=== PATIENT | female | born 1965 | race Hispanic/Latino ===

== ENCOUNTER 2017-11-29 17:56 | Emergency (ER) | payer BC, OTHER, SELFPAY ==
--- OUTSIDE RECORDS SUMMARY | 2017-11-29 17:59 | XMS REPORT ---
:1965 [facility] Address [address] [place] [address] Care Team Providers Name Role Phone Unavailable Unavailable Unavailable Problems This patient has no known problems. Allergies, Adverse Reactions, Alerts This patient has no known allergies or adverse reactions. Medications This patient has no known medications. Results Test Description Test Time Test Comments Text Results Atomic Results Result Comments MRI ANKLE JNT RT WO CLINICAL INDICATION: M76.821 Posterior tibial tendinitis, right leg. MODALITY: Avanto 1.5 Morenita 18 channel MRITECHNIQUE: Multiplanar multisequence MRI of the right ankle was performed.IMPRESSION:1. Evidence of prior repair of the tibialis posterior tendon, with evidence of postoperative tendon thickening/tendinosis. Recurrent low to moderate grade type 1 partial tear is evident involving the retro malleolar aspect of the tendon and low grade recurrent type 1 tear is evident involving distal aspect of the tendon near its navicular attachment. Soft tissue edema is present adjacent to the tibialis posterior tendon sheath, consistent with tenosynovitis.2. Small vertical split involving the proximal inframalleolar peroneus brevis tendon, with associated tenosynovitis.3. Otherwise unremarkable MRI of the right ankle.FINDINGS:COMPARISON: noneEXTENSOR TENDONS: Tibialis anterior, extensor hallucis longus and extensor digitorum longus tendons are intact.MEDIAL TENDONS: Tibialis posterior tendinosis is evident. Micro metallic artifacts are present about the medial aspect of the ankle, presumably status post tibialis posterior tendon repair. Low to moderate grade type 1 partial tear is evident involving the retro malleolar aspect of the tibialis posterior tendon. Low grade type 1 partial tear involves the distal aspect of the tendon near its navicular attachment. Mild edema signal is seen adjacent to the tibialis posterior tendon sheath, consistent with tenosynovitis. The flexor hallucis longus and flexor digitorum longus tendons are intact.LATERAL TENDONS: Small vertical split involving the proximal inframalleolar aspect of the peroneus brevis tendon is evident. Mildly prominent fluid is present within the peroneal tendon sheath and there is mild adjacent soft tissue edema. The peroneus longus tendon remains intact.ACHILLES TENDON: Achilles tendon is intact.LIGAMENTS: The anterior and posterior talofibular ligaments are intact. Calcaneofibular ligament is intact. Anterior and posterior inferior tibiofibular ligaments are intact. Deltoid ligament is intact.SINUS TARSI: Sinus tarsi signal is normal. Cervical and talocalcaneal interosseous ligaments are intact.OSSEOUS STRUCTURES: No fractures or destructive osseous lesions are detected. Marrow signal is unremarkable. High-grade talar dome chondral lesion is not seen.MISCELLANEOUS FINDINGS: None.
--- NOTE | 2017-11-29 18:48 | RAD REPORT ---
EXAM DESCRIPTION: RAD - Ankle Left 3 View -11/29/2017 6:33 pm CLINICAL HISTORY: Left ankle pain status post injury FINDINGS: No acute fracture or dislocation is seen. A radiopaque foreign body is not seen
[2017-11-29] MEDS ORDERED: IBUPROFEN 400 MG TAB ONE (20:16)
--- NOTE | 2017-11-29 20:18 | ER ---
Nurse's Notes [facility] Name: Candida Davison Age: 52 yrs Sex: Female : 1965 Arrival Date: 11/29/2017 Time: 18:03 Bed 17 Private MD: Diagnosis: Laceration without foreign body of ankle-Left Presentation: 11/29 18:08 Presenting complaint: EMS states: glass cake stand fell and a piece of the glass cut iw her on left posterior ankle, dressing applied by EMS, bleeding controlled. Transition of care: patient was not received from another setting of care. Complicating Factors: There are no complicating factors for this patient. Onset of symptoms was November 29, 2017. Risk Assessment: Do you want to hurt yourself or someone else? Patient reports no desire to harm self or others. Initial Sepsis Screen: Does the patient meet any 2 criteria? No. Patient's initial sepsis screen is negative. Does the patient have a suspected source of infection? No. Patient's initial sepsis screen is negative. Care prior to arrival: Bleeding of injury controlled. Injury dressed. 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 - Social history:: Smoking status: . - Ebola Screening: : Patient negative for fever greater than or equal to 101.5 degrees Fahrenheit, and additional compatible Ebola Virus Disease symptoms Patient denies exposure to infectious person Patient denies travel to an Ebola-affected area in the 21 days before illness onset No symptoms or risks identified at this time. Screenin:35 Abuse screen: Denies threats or abuse. Denies injuries from another. Nutritional iw screening: No deficits noted. Tuberculosis screening: No symptoms or risk factors identified. Fall Risk None identified. Assessment: 18:33 General: Appears in no apparent distress. Behavior is calm, cooperative. Pain: iw Complains of pain in left Achilles Pain currently is 2 out of 10 on a pain scale. Neuro: Level of Consciousness is awake, alert, obeys commands, Oriented to person, place, time, situation, Moves all extremities. Full function. Cardiovascular: Patient's skin is warm and dry. Respiratory: Respiratory effort is even, unlabored, Respiratory pattern is regular, symmetrical. GI: No signs and/or symptoms were reported involving the gastrointestinal system. Derm: Skin is pink, warm \T\ dry. normal. Musculoskeletal: Range of motion: intact in all extremities. Injury Description: Laceration sustained to left Achilles is jagged, 0.5 to 2.5 cm long. 19:14 Reassessment: Patient appears in no apparent distress at this time. No changes from j previously documented assessment. Patient and/or family updated on plan of care and expected duration. Pain level reassessed. Patient is alert, oriented x 3, equal unlabored respirations, skin warm/dry/pink. 20:49 Reassessment: Patient appears in no apparent distress at this time. Patient and/or jd3 family updated on plan of care and expected duration. Pain level reassessed. Patient is alert, oriented x 3, equal unlabored respirations, skin warm/dry/pink. pt reported understanding of discharge instructions, pt assisted to front of ER with wheelchair. Vital Signs: 18:10 BP 160 / 106; Pulse 85; Resp 16; Temp 98.3(TE); Pulse Ox 100% on R/A; Pain 2/10; iw 19:25 BP 167 / 99; Pulse 72; Resp 17 S; Pulse Ox 98% on R/A; Pain 2/10; jd3 20:52 Pulse 75; Resp 17 S; Pulse Ox 100% on R/A; Pain 0/10; jd3 ED Course: 18:03 Patient arrived in ED. iw 18:04 Rhett Gates PA is PHCP. cp 18:04 Rhett Toure MD is Attending Physician. cp 18:09 Triage completed. iw 18:10 Arm band placed on. iw 18:29 Tristan Shepard LVN is Primary Nurse. em 18:30 X-ray completed. Portable x-ray completed in exam room. Patient tolerated procedure la2 well. 18:30 XRAY Ankle LEFT 3 view In Process Unspecified. EDMS 18:35 Patient did not have IV access during this emergency room visit. iw 19:14 Patient has correct armband on for positive identification. Bed in low position. Call jd3 light in reach. Side rails up X 1. Adult w/ patient. 19:24 Primary Nurse role handed off by Tristan Shepard LVN rg2 19:25 Rashaun Carmona, RN is Primary Nurse. jd3 20:48 Assist provider with laceration repair on left Achilles that was between 2.6 to 7.5 cm jd3 using sutures. Set up tray. Performed by Rhett Gates PA Dressed with 4X4s, Kerlix, Patient tolerated well. Administered Medications: 20:26 Drug: Ibuprofen 800 mg Route: PO; jd3 20:53 Follow up: Response: Medication administered at discharge. jd3 Outcome: 20:18 Discharge ordered by MD. cp 20:49 Discharged to home via wheelchair, with family. jd3 20:49 Condition: stable 20:49 Discharge instructions given to patient, family, Instructed on discharge instructions, follow up and referral plans. medication usage, Demonstrated understanding of instructions, follow-up care, medications, Prescriptions given X 1. 20:53 Patient left the ED. jd3 Signatures: Dispatcher [employer] ED Tony Doeburn rg2 Tristan Shepard LVN LVN em Nuria Friend RN RN Rhett Peterson PA PA cp Ardoin, Leslie la2 Rashaun Carmona, RN RN jd3 Corrections: (The following items were deleted from the chart) 18:12 18:10 Pain 2/10; iw kym
--- NOTE | 2017-11-29 20:18 | EDPHYS ---
Physician Documentation [facility] Name: Candida Davison Age: 52 yrs Sex: Female : 1965 Arrival Date: 11/29/2017 Time: 18:03 Bed 17 Private MD: ED Physician Rhett Toure HPI: 11/29 18:15 This 52 yrs old Female presents to ER via EMS with complaints of Laceration. cp 18:15 The patient presents with an injury, a laceration, 3 cm(s), pain, that is acute. The cp complaints affect the left lateral ankle. 18:15 Context: resulted from a direct blow, heavy glass object dropped onto ankle. Onset: The cp symptoms/episode began/occurred just prior to arrival. Treatment prior to arrival includes: pressure dressing applied by EMS. 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 - Social history:: Smoking status: . - Ebola Screening: : Patient negative for fever greater than or equal to 101.5 degrees Fahrenheit, and additional compatible Ebola Virus Disease symptoms Patient denies exposure to infectious person Patient denies travel to an Ebola-affected area in the 21 days before illness onset No symptoms or risks identified at this time. ROS: 18:20 Eyes: Negative for injury, pain, redness, and discharge. cp 18:20 Constitutional: Negative for body aches, chills, fever, poor PO intake. 18:20 ENT: Negative for drainage from ear(s), ear pain, sore throat, difficulty swallowing, cp difficulty handling secretions. 18:20 Cardiovascular: Negative for chest pain, edema, palpitations. 18:20 Respiratory: Negative for cough, shortness of breath, wheezing. 18:20 MS/extremity: Positive for pain, tenderness, of the lateral aspect left ankle, Negative for decreased range of motion, paresthesias. 18:20 Skin: Positive for laceration(s), of the lateral aspect left ankle. 18:20 All other systems are negative. Exam: 18:28 Constitutional: The patient appears in no acute distress, alert, awake, non-toxic, well cp developed, well nourished, uncomfortable. 18:28 Head/Face: Normocephalic, atraumatic. cp 18:30 Eyes: Periorbital structures: appear normal, Conjunctiva: normal, no exudate, no cp injection, Lids and lashes: appear normal, bilaterally. 18:30 ENT: External ear(s): are unremarkable, Nose: is normal, Mouth: is normal, Posterior cp pharynx: is normal, airway is patent. 18:30 Chest/axilla: Inspection: normal. 18:30 Cardiovascular: Rate: normal, Rhythm: regular, Pulses: Pulses are 2+ in left dorsalis pedis artery. 18:30 Respiratory: the patient does not display signs of respiratory distress, Respirations: normal, no use of accessory muscles, no retractions, no splinting, no tachypnea. 18:30 Abdomen/GI: Exam negative for discomfort, distension, guarding, Inspection: abdomen appears normal. 18:30 Back: pain, is absent, ROM is normal. 18:30 Musculoskeletal/extremity: ROM: full active range of motion, in the left ankle, Sensation intact. Tendon exam: specific tendon testing normal through active and passive range of motion 18:30 Skin: injury, laceration(s), the wound is approximately 3 cm(s), of the lateral aspect posterior left ankle, that can be described as clean, no foreign body, linear, with mild bleeding. Vital Signs: 18:10 BP 160 / 106; Pulse 85; Resp 16; Temp 98.3(TE); Pulse Ox 100% on R/A; Pain 2/10; iw 19:25 BP 167 / 99; Pulse 72; Resp 17 S; Pulse Ox 98% on R/A; Pain 2/10; jd3 20:52 Pulse 75; Resp 17 S; Pulse Ox 100% on R/A; Pain 0/10; jd3 Laceration: 21:00 Wound Repair of 3cm ( 1.2in ) subcutaneous laceration to posterior lateral aspect left cp ankle. Linear shaped.. Distal neuro/vascular/tendon intact. Anesthesia: Wound infiltrated with 4 mls of 1% lidocaine w/ Epi. Wound prep: Wound irrigation by nurse, Wound explored moderately. Skin closed with 4 4-0 Prolene using simple sutures and sterile technique. Dressed with Bacitracin, non-adherent dressing. Patient tolerated well. MDM: 18:06 Patient medically screened. cp 19:00 Differential diagnosis: open fracture, closed fracture, simple laceration, tendon cp rupture. 20:15 Data reviewed: vital signs, nurses notes, radiologic studies, plain films. cp 20:15 Test interpretation: by ED physician or midlevel provider: plain radiologic studies. cp Counseling: I had a detailed discussion with the patient and/or guardian regarding: the historical points, exam findings, and any diagnostic results supporting the discharge/admit diagnosis, radiology results, to return to the emergency department if symptoms worsen or persist or if there are any questions or concerns that arise at home. Response to treatment: the patient's symptoms have markedly improved after treatment, and as a result, I will discharge patient. ED course: VSS. Ankle splinted with air cast and crutches given. Will discharge to home for continued monitoring. 11/29 18:05 Order name: XRAY Ankle LEFT 3 view; Complete Time: 18:54 cp 11/29 18:54 Interpretation: Report reviewed. cp 11/29 18:15 Order name: Wound Care; Complete Time: 19:10 cp 11/29 18:54 Order name: Wound Care; Complete Time: 19:10 cp 11/29 19:08 Order name: Dressing - Wound; Complete Time: 20:08 cp 11/29 19:08 Order name: Gloves, Sterile; Complete Time: 19:14 cp 11/29 19:08 Order name: Setup Suture Tray; Complete Time: 19:14 cp 11/29 20:07 Order name: Wound dressing; Complete Time: 20:26 cp 11/29 20:07 Order name: Ankle Splint: Aircast; Complete Time: 20:26 cp 11/29 20:07 Order name: Crutches; Complete Time: 20:26 cp Administered Medications: 20:26 Drug: Ibuprofen 800 mg Route: PO; jd3 20:53 Follow up: Response: Medication administered at discharge. jd3 Disposition: 11/30 09:08 Co-signature as Attending Physician, Rhett Toure MD I agree with the assessment and [place] plan of care. Disposition: 11/29/17 20:18 Discharged to Home. Impression: Laceration without foreign body of ankle - Left. - Condition is Stable. - Discharge Instructions: Laceration Care, Adult. - Prescriptions for Naprosyn 500 mg Oral Tablet - take 1 tablet by ORAL route 2 times per day take with food; 20 tablet. - Medication Reconciliation Form, Thank You Letter, Antibiotic Education, Prescription Opioid Use form. - Follow up: Private Physician; When: 7 - 10 days; Reason: Staple/Suture removal. - Problem is new. - Symptoms have improved. Signatures: Dispatcher [employer] EDMS Rhett Toure MD MD cha Williams, Irene, RN RN iw Rhett Gates PA PA cp Davies, Jonathon, RN RN jd3 Corrections: (The following items were deleted from the chart) 11/29 20:53 20:18 11/29/2017 20:18 Discharged to Home. Impression: Laceration without foreign body jd3 of ankle - Left. Condition is Stable. Forms are Medication Reconciliation Form, Thank You Letter, Antibiotic Education, Prescription Opioid Use. Follow up: Private Physician; When: 7 - 10 days; Reason: Staple/Suture removal. Problem is new. Symptoms have improved. cp
== END 2017-11-29 20:53 | disposition home or self-care (01) ==
LOC: ER 17:56
PROC: 0JQR0ZZ Repair Left Foot Subcutaneous Tissue and Fascia, Open Approach (ICD-10-PCS; principal; 2017-11-29)
DX: S91.012A Laceration without foreign body, left ankle, initial encounter (principal); W25.XXXA Contact with sharp glass, initial encounter; Y93.9 Activity, unspecified; Y92.9 Unspecified place or not applicable; I10 Essential (primary) hypertension; Z88.5 Allergy status to narcotic agent; Z88.0 Allergy status to penicillin
CPT/HCPCS: 99284

== ENCOUNTER 2018-03-18 13:41 | Emergency (ER) | payer BC ==
--- OUTSIDE RECORDS SUMMARY | 2018-03-18 13:44 | XMS REPORT ---
:1965 [facility] Address [address] [place] [address] Care Team Providers Name Role Phone Unavailable [...]
--- OUTSIDE RECORDS SUMMARY | 2018-03-18 13:44 | XMS REPORT ---
:1965 Author Organization [employer] Care Team Providers Name Role Phone Jose Luis Rossen Provider Role Unavailable Allergies, Adverse Reactions, Alerts Substance Reaction Event Type codeine Info Not Available Drug Allergy PCN Info Not Available Drug Allergy MORPHINE Info Not Available Drug Allergy Problems Problem Type Condition Code Onset Dates Condition Status Assessment Other chronic pain G89.29 Active Assessment Gastroesophageal reflux disease, K21.9 Active esophagitis presence not specified Assessment Pain in right ankle and joints of M25.571 Active right foot Assessment Low back pain M54.5 Active Problem Other chronic pain G89.29 Active Problem Pain in right ankle and joints of M25.571 Active right foot Problem Low back pain M54.5 Active Assessment Hypertension, unspecified type I10 Active Problem Gastroesophageal reflux disease, K21.9 Active esophagitis presence not specified Problem Hypertension, unspecified type I10 Active Medications Medication Code Code Instructions Start End Status Dosage System Date Date Gabapentin [facility] 74814511721 300 MG Orally Jan 21, Active 1-2 Once a day 2017 capsules in evening Metoprolol [facility] 20985850147 50 MG Orally Active 1 tablet Tartrate Twice a day with food Lisinopril [facility] 17160543806 20 MG Orally Active 1 tablet Once daily Results No Known Results Summary Purpose [employer] Submission
[2018-03-18] MEDS ORDERED: FENTANYL CITR 100 MCG/2 ML ONE ×2 (14:19→16:38)
[2018-03-18] MEDS ORDERED: NA CHLORIDE 0.9% 1,000 ML ONE ×2 (14:20→15:53)
[2018-03-18] MEDS ORDERED: ONDANSETRON 4 MG/2 ML VIAL ONE ×2 (14:20→18:34)
[2018-03-18 14:46] LABS: Absolute Lymphocytes (CBC) 2.2 K/uL (0.7-4.9); Absolute Monocytes 0.4 K/uL (0.1-1.3); Absolute Neutrophil 5.6 K/uL (1.8-8.0); Basophils % 0.2 % (0-1.3); Eosinophils % 0.4 % (0-4.4); Hematocrit 43.5 % (36.0-45.0); Lymphocytes % 26.7 % (15.3-44.8); MCH 30.6 pg (27.0-35.0); MCV 90.3 fL (80-100); MPV 11.3 fL (7.6-11.3); Monocytes % 5.3 % (3.3-12.3); RBC Red Blood Cell Count 4.82 M/uL (3.86-4.86)
--- NOTE | 2018-03-18 14:52 | RAD REPORT ---
EXAM DESCRIPTION: CT - Stone Protocol - 03/18/2018 2:39 pm CLINICAL HISTORY: Left-sided abdominal pain, flank pain COMPARISON: None. TECHNIQUE: Axial 5 mm thick images were obtained without oral or IV contrast. The [id number] span s the entirety of the system including uppermost abdomen and lung bases. All CT scans are performed using dose optimization technique as appropriate and may include automated exposure control or mA/KV adjustment according to patient size. FINDINGS: Mild dilatation of the left ureter is present secondary to a 2 millimeter stone at the UVJ . No other obstructing or nonobstructing calculi in either kidney. Patient has mild to moderate dilat ation of the right renal pelvis without ureter dilatation. There is more pronounced dilatation in the left renal pelvis. 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 Patient could have additio nal left-sided parapelvic cysts. Full assessment is limited in the absence of contrast. No perinephri c stranding. Left kidney does not appear edematous relative to the right. No bladder abnormality other than the left UVJ calculus. Uterus and ovaries show no suspicious findin gs. No suspicious renal masses. Isodense masses and pyelonephritis are not excluded on a stone protoc ol CT scan. Imaged portions of the liver, spleen and pancreas show no suspicious findings on non-contrast imaging . Small cysts are present in the midline left lobe and dome of the right lobe. No gallbladder or bili april tree abnormality. Gallstones can be occult on CT imaging. No significant adrenal finding. No suspicious bowel findings. Appendix is normal. No hernia, mass or bulky lymphadenopathy noted. No free air, free fluid or inflammatory stranding. No significant bony abnormality. IMPRESSION: Mild dilatation of the left ureter secondary to an obstructing 2 mm calculus left UVJ. 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 Find ings are more pronounced on the left. This could be in part due to the obstructing calculus, greater degree of congenital UPJ obstruction, presence of parapelvic cysts or a combination. Absence of contr ast limits assessment. Isodense masses and pyelonephritis are not excluded on stone protocol technique.
[2018-03-18 15:05] LABS: Potassium 3.9 mmol/L (3.5-5.1)
[2018-03-18] MEDS ORDERED: TAMSULOSIN 0.4 MG SR CAP ONE (15:18)
[2018-03-18] MEDS ORDERED: KETOROLAC 30 MG/ML INJ ONE (15:18)
[2018-03-18] MEDS ORDERED: MAGNESIUM SULFATE 1 gm IVPB 1 GM/100 ML BAG IV ONE (15:18)
[2018-03-18] MEDS ORDERED: MEPERIDINE HCL 50 MG/ML AMP ONE (15:40)
[2018-03-18] MEDS ORDERED: DIPHENHYDRAMINE 25 MG TAB/CAP ONE (15:46)
[2018-03-18] MEDS ORDERED: METHYLPREDNISOLONE 125 MG INJ ONE (15:46)
[2018-03-18] MEDS ORDERED: FAMOTIDINE 20 MG/2 ML VIAL IV ONE ×2 (15:47→15:52)
[2018-03-18] MEDS ORDERED: EPINEPHRINE/PF 1 MG/ML AMP ONE (15:47)
[2018-03-18] MEDS ORDERED: ALBUTEROL 2.5 MG/3 ML NEB SOL ONE (15:47)
[2018-03-18 17:26] LABS: Urine Blood TRACE (NEG); Urine Glucose NEGATIVE (NEG); Urine Protein NEGATIVE (NEG); Urine pH 5.5 (5.0-7.0)
[2018-03-18] MEDS ORDERED: NITROFURAN MACRO 100 MG CAP PO ONE (17:34)
[2018-03-18 17:38] LABS: Urine Amorphous Sediment 2+ /HPF (NONE SEEN); Urine Bacteria >50 /HPF (<20)
[2018-03-18 17:39] LABS: Urine Culture Reflex Order REFLEXED
--- NOTE | 2018-03-18 19:19 | EDPHYS ---
Physician Documentation [facility] Name: Candida Davison Age: 52 yrs Sex: Female : 1965 Arrival Date: 03/18/2018 Time: 13:44 Bed 30 Private MD: Cristina Ross ED Physician Henrry Foley HPI: 03/18 14:52 This 52 yrs old Female presents to ER via Wheelchair with complaints of Low kb Back Pain. 14:52 The patient complains of pain in the left flank. The pain radiates to the left upper kb quadrant. Onset: The symptoms/episode began/occurred 1 hour(s) ago. Modifying factors: The symptoms are alleviated by nothing. the symptoms are aggravated by palpation/percussion. Associated signs and symptoms: The patient has no apparent associated signs or symptoms. Severity of pain: At its worst the pain was moderate in the emergency department the pain is unchanged. The patient has not experienced similar symptoms in the past. The patient has not recently seen a physician. NURSE EMERGENCY: 19:33 LMP N/A - Post-menopause rv Historical: - Allergies: 14:06 Codeine; iw 14:06 Morphine; iw 14:06 PENICILLINS; iw 15:52 Demerol; rv - PMHx: 14:08 Hypertension; iw - PSHx: 14:08 L shoulder repair; iw - Immunization history:: Adult Immunizations up to date. - Ebola Screening: : Patient negative for fever greater than or equal to 101.5 degrees Fahrenheit, and additional compatible Ebola Virus Disease symptoms Patient denies exposure to infectious person Patient denies travel to an Ebola-affected area in the 21 days before illness onset No symptoms or risks identified at this time. - Social history:: Smoking status: unknown. ROS: 14:51 Constitutional: Negative for fever, chills, and weight loss, Cardiovascular: Negative kb for chest pain, palpitations, and edema, Respiratory: Negative for shortness of breath, cough, wheezing, and pleuritic chest pain, : Negative for injury, bleeding, discharge, and swelling, MS/Extremity: Negative for injury and deformity, Skin: Negative for injury, rash, and discoloration, Neuro: Negative for headache, weakness, numbness, tingling, and seizure. 14:51 Abdomen/GI: Positive for abdominal pain. 14:51 Back: Positive for flank pain, on the left. Exam: 14:51 Constitutional: This is a well developed, well nourished patient who is awake, alert, kb and in no acute distress. Head/Face: Normocephalic, atraumatic. Chest/axilla: Normal chest wall appearance and motion. Nontender with no deformity. No lesions are appreciated. Cardiovascular: Regular rate and rhythm with a normal S1 and S2. No gallops, murmurs, or rubs. Normal PMI, no JVD. No pulse deficits. Respiratory: Lungs have equal breath sounds bilaterally, clear to auscultation and percussion. No rales, rhonchi or wheezes noted. No increased work of breathing, no retractions or nasal flaring. Abdomen/GI: Soft, non-tender, with normal bowel sounds. No distension or tympany. No guarding or rebound. No evidence of tenderness throughout. Skin: Warm, dry with normal turgor. Normal color with no rashes, no lesions, and no evidence of cellulitis. MS/ Extremity: Pulses equal, no cyanosis. Neurovascular intact. Full, normal range of motion. Neuro: Awake and alert, GCS 15, oriented to person, place, time, and situation. Cranial nerves II-XII grossly intact. Motor strength 5/5 in all extremities. Sensory grossly intact. Cerebellar exam normal. Normal gait. 14:51 Back: CVA tenderness, that is moderate, is noted on the left. Vital Signs: 14:07 BP 181 / 89; Pulse 98; Resp 16; Temp 98.2; Pulse Ox 98% on R/A; Pain 10/10; iw 15:23 BP 153 / 117; Pulse 94; Pulse Ox 98% on R/A; rv 16:08 BP 155 / 93; Pulse 92; Resp 18; Pulse Ox 100% ; rv 17:04 BP 148 / 67; Pulse 102; Pulse Ox 99% on R/A; rv 19:18 BP 144 / 81; rv 19:34 BP 144 / 81; Pulse 95; Pulse Ox 100% on R/A; rv MDM: 13:56 Patient medically screened. kb 14:51 Data reviewed: vital signs, nurses notes. Data interpreted: Pulse oximetry: on room air kb is 98 %. Interpretation: normal. 15:06 Counseling: I had a detailed discussion with the patient and/or guardian regarding: the kb historical points, exam findings, and any diagnostic results supporting the discharge/admit diagnosis, lab results, radiology results, the need for outpatient follow up, a family practitioner, a urologist, to return to the emergency department if symptoms worsen or persist or if there are any questions or concerns that arise at home. 16:09 ED course: Pt had allergic reaction to demerol. became short of breath, wheezing noted kb on auscultation, oxygen saturation went down to 87% on room air. Pt has improved after treatment. Lungs clear bilaterally, oxygen 96%. Will continue to monitor. Demerol added to allergy list. . 03/18 13:59 Order name: Basic Metabolic Panel; Complete Time: 15:06 kb 03/18 13:59 Order name: CBC with Diff; Complete Time: 14:53 kb 03/18 13:59 Order name: CT Stone Protocol; Complete Time: 14:53 kb 03/18 17:12 Order name: Urine Dipstick--Ancillary (enter results); Complete Time: 17:28 eb 03/18 17:12 Order name: Urine Microscopic Only; Complete Time: 17:40 eb 03/18 17:40 Order name: Urine Culture EDTX 03/18 13:59 Order name: IV Saline Lock; Complete Time: 14:20 kb 03/18 13:59 Order name: Labs collected and sent; Complete Time: 14:20 kb 03/18 13:59 Order name: Urine Dipstick-Ancillary (obtain specimen); Complete Time: 17:22 kb Administered Medications: 14:21 Drug: fentaNYL (PF) 50 mcg Route: IVP; Site: right antecubital; iw 15:20 Follow up: Response: No adverse reaction rv 14:21 Drug: Zofran 4 mg Route: IVP; Site: right antecubital; iw 15:20 Follow up: Response: No adverse reaction rv 14:21 Drug: NS 0.9% 1000 ml Route: IV; Rate: 1000 ml; Site: right antecubital; iw 14:38 Drug: fentaNYL (PF) 50 mcg Route: IVP; Site: right antecubital; iw 15:20 Follow up: Response: No adverse reaction rv 15:19 Drug: TORadol 30 mg Route: IVP; Site: right antecubital; rv 16:52 Follow up: Response: No adverse reaction rv 15:19 Drug: Flomax 0.4 mg Route: PO; rv 16:52 Follow up: Response: No adverse reaction rv 15:19 Drug: Magnesium Sulfate 1 grams Route: IVPB; Infused Over: 30 mins; Site: right rv antecubital; 15:40 Drug: Demerol 50 mg Route: IVP; Site: right antecubital; rv 15:50 Follow up: Response: Adverse reaction, Physician notified rv 15:55 Drug: EPINEPHrine 1mg/mL 1:1,000 0.5 mg Route: IM; Site: left gluteus; rv 16:52 Follow up: Response: No adverse reaction rv 16:30 Drug: fentaNYL (PF) 50 mcg Route: IVP; Site: right antecubital; rv 19:19 Follow up: Response: No adverse reaction rv 18:04 Drug: fentaNYL (PF) 50 mcg Route: IVP; Site: right antecubital; rv 19:19 Follow up: Response: No adverse reaction rv 18:30 Drug: Zofran 4 mg Route: IVP; Site: right antecubital; rv 18:55 Follow up: Response: No adverse reaction rv 19:00 Drug: Macrobid 100 mg Route: PO; rv 19:20 Follow up: Response: No adverse reaction rv Disposition: 03/19 07:35 Co-signature as Attending Physician, Henrry Foley MD. rn Disposition: 03/18/18 19:18 Discharged to Home. Impression: Calculus of kidney and ureter. - Condition is Stable. - Discharge Instructions: Kidney Stones, [id number], Dietary Guidelines to Help Prevent Kidney Stones. - Prescriptions for Zofran 4 mg Oral Tablet - take 1 tablet by ORAL route every 6 hours As needed; 20 tablet. Flomax 0.4 mg Oral Capsule, Sust. Release 24 hr - take 1 capsule by ORAL route once daily 1/2 hour following the same meal each day; 10 capsule. Diclofenac Sodium 75 mg Oral Tablet, Delayed Release (E.C.) - take 1 tablet by ORAL route 2 times per day As needed; 30 tablet. Macrobid 100 mg Oral Capsule - take 1 capsule by ORAL route every 12 hours for 7 days; 14 capsule. - Medication Reconciliation Form, Thank You Letter, Antibiotic Education, Prescription Opioid Use form. - Follow up: Emergency Department; When: As needed; Reason: Worsening of condition. Follow up: Cristina Ross; When: 2 - 3 days; Reason: Recheck today's complaints, Continuance of care, Re-evaluation by your physician. Follow up: Michael Gutierrez; When: 2 - 3 days; Reason: Recheck today's complaints. Signatures: Dispatcher [employer] EDMacey Whyte, FACILITIES ADMINISTRATOR-C FACILITIES ADMINISTRATOR-Nuria Horowitz, RN CARLY iw Henrry Foley MD MD rn Vicente, Ronaldo, RN RN rv Corrections: (The following items were deleted from the chart) 03/18 19:34 19:18 03/18/2018 19:18 Discharged to Home. Impression: Calculus of kidney and ureter. rv Condition is Stable. Discharge Instructions: Kidney Stones, [id number], Dietary Guidelines to Help Prevent Kidney Stones. Prescriptions for Zofran 4 mg Oral Tablet - take 1 tablet by ORAL route every 6 hours As needed; 20 tablet, Flomax 0.4 mg Oral Capsule, Sust. Release 24 hr - take 1 capsule by ORAL route once daily 1/2 hour following the same meal each day; 10 capsule, Diclofenac Sodium 75 mg Oral Tablet, Delayed Release (E.C.) - take 1 tablet by ORAL route 2 times per day As needed; 30 tablet, Macrobid 100 mg Oral Capsule - take 1 capsule by ORAL route every 12 hours for 7 days; 14 capsule. and Forms are Medication Reconciliation Form, Thank You Letter, Antibiotic Education, Prescription Opioid Use. Follow up: Emergency Department; When: As needed; Reason: Worsening of condition. Follow up: Cristina Vandana; When: 2 - 3 days; Reason: Recheck today's complaints, Continuance of care, Re-evaluation by your physician. Follow up: Michael Gutierrez; When: 2 - 3 days; Reason: Recheck today's complaints. kb
--- NOTE | 2018-03-18 19:19 | ER ---
Nurse's Notes [facility] Name: Candida Davison Age: 52 yrs Sex: Female : 1965 Arrival Date: 03/18/2018 Time: 13:44 Bed 30 Private MD: Cristina Ross Diagnosis: Calculus of kidney and ureter Presentation: 03/18 13:53 Presenting complaint: Patient states: sudden onset of sharp LUQ pain radiating to back iw X 1 hour, denies injury, denies hx of kidney stones. Transition of care: patient was not received from another setting of care. Onset of symptoms was March 18, 2018. Care prior to arrival: None. 13:53 Method Of Arrival: Wheelchair iw 13:53 Acuity: MELVIN 3 iw 14:06 Risk Assessment: Do you want to hurt yourself or someone else? Patient reports no iw desire to harm self or others. Initial Sepsis Screen: Does the patient meet any 2 criteria? No. Patient's initial sepsis screen is negative. Does the patient have a suspected source of infection? No. Patient's initial sepsis screen is negative. 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 - Ebola Screening: : Patient negative for fever greater than or equal to 101.5 degrees Fahrenheit, and additional compatible Ebola Virus Disease symptoms Patient denies exposure to infectious person Patient denies travel to an Ebola-affected area in the 21 days before illness onset No symptoms or risks identified at this time. - Social history:: Smoking status: unknown. Screenin:30 Abuse screen: Denies threats or abuse. Denies injuries from another. Nutritional iw screening: No deficits noted. Tuberculosis screening: No symptoms or risk factors identified. Fall Risk IV access (20 points). Assessment: 14:15 General: Appears uncomfortable, Behavior is agitated, anxious. Pain: Complains of pain iw in left upper quadrant and left flank Pain currently is 10 out of 10 on a pain scale. Neuro: Level of Consciousness is awake, alert, obeys commands, Moves all extremities. Full function. Cardiovascular: Patient's skin is warm and dry. Respiratory: Respiratory effort is even, unlabored. GI: Abdomen is non-distended, Reports upper abdominal pain. Derm: Skin is intact, is healthy with good turgor. Musculoskeletal: Range of motion: intact in all extremities. 14:30 Reassessment: pt back from CT, still in pain 10/10, c/o constant back spasms. iw 15:24 Reassessment: Patient and/or family updated on plan of care and expected duration. Pain rv level reassessed. Patient is alert, oriented x 3, equal unlabored respirations, skin warm/dry/pink. 17:05 Reassessment: Patient and/or family updated on plan of care and expected duration. Pain rv level reassessed. Patient is alert, oriented x 3, equal unlabored respirations, skin warm/dry/pink. Vital Signs: 14:07 BP 181 / 89; Pulse 98; Resp 16; Temp 98.2; Pulse Ox 98% on R/A; Pain 10/10; iw 15:23 BP 153 / 117; Pulse 94; Pulse Ox 98% on R/A; rv 16:08 BP 155 / 93; Pulse 92; Resp 18; Pulse Ox 100% ; rv 17:04 BP 148 / 67; Pulse 102; Pulse Ox 99% on R/A; rv 19:18 BP 144 / 81; rv 19:34 BP 144 / 81; Pulse 95; Pulse Ox 100% on R/A; rv ED Course: 13:44 Patient arrived in ED. sb2 13:44 Cristina Ross MD is Private Physician. sb2 13:53 Nuria Friend, CARLY is Primary Nurse. iw 13:55 Triage completed. iw 13:56 Macey Enamorado F[facility]-C [facility]. kb 13:56 Henrry Foley MD is Attending Physician. kb 14:27 CT completed. Patient tolerated procedure well. Patient moved to CT via wheelchair. [id number] Patient moved back from CT. 14:29 Initial lab(s) drawn, by ED staff, sent to lab. Inserted saline lock: 20 gauge in right iw antecubital area, using aseptic technique. Blood collected. 14:40 CT Stone Protocol In Process Unspecified. EDMS 16:09 Arm band placed on right wrist. rv 16:09 Patient has correct armband on for positive identification. Bed in low position. Call rv light in reach. Side rails up X2. Adult w/ patient. maintenance planning clerk on. Pulse ox on. NIBP on. 19:18 Cristina Ross MD is Referral Physician. kb 19:18 Michael Gutierrez MD is Referral Physician. kb 19:33 IV discontinued, bleeding controlled, No redness/swelling at site. Pressure dressing rv applied. 19:33 No provider procedures requiring assistance completed. rv Administered Medications: 14:21 Drug: fentaNYL (PF) 50 mcg Route: IVP; Site: right antecubital; iw 15:20 Follow up: Response: No adverse reaction rv 14:21 Drug: Zofran 4 mg Route: IVP; Site: right antecubital; iw 15:20 Follow up: Response: No adverse reaction rv 14:21 Drug: NS 0.9% 1000 ml Route: IV; Rate: 1000 ml; Site: right antecubital; iw 14:38 Drug: fentaNYL (PF) 50 mcg Route: IVP; Site: right antecubital; iw 15:20 Follow up: Response: No adverse reaction rv 15:19 Drug: TORadol 30 mg Route: IVP; Site: right antecubital; rv 16:52 Follow up: Response: No adverse reaction rv 15:19 Drug: Flomax 0.4 mg Route: PO; rv 16:52 Follow up: Response: No adverse reaction rv 15:19 Drug: Magnesium Sulfate 1 grams Route: IVPB; Infused Over: 30 mins; Site: right rv antecubital; 15:40 Drug: Demerol 50 mg Route: IVP; Site: right antecubital; rv 15:50 Follow up: Response: Adverse reaction, Physician notified rv 15:55 Drug: EPINEPHrine 1mg/mL 1:1,000 0.5 mg Route: IM; Site: left gluteus; rv 16:52 Follow up: Response: No adverse reaction rv 16:30 Drug: fentaNYL (PF) 50 mcg Route: IVP; Site: right antecubital; rv 19:19 Follow up: Response: No adverse reaction rv 18:04 Drug: fentaNYL (PF) 50 mcg Route: IVP; Site: right antecubital; rv 19:19 Follow up: Response: No adverse reaction rv 18:30 Drug: Zofran 4 mg Route: IVP; Site: right antecubital; rv 18:55 Follow up: Response: No adverse reaction rv 19:00 Drug: Macrobid 100 mg Route: PO; rv 19:20 Follow up: Response: No adverse reaction rv Outcome: 19:18 Discharge ordered by . kb 19:33 Discharged to home ambulatory. rv 19:33 Condition: improved 19:33 Discharge instructions given to patient, Instructed on discharge instructions, follow up and referral plans. medication usage, Demonstrated understanding of instructions, follow-up care, medications, Prescriptions given X 4. 19:34 Patient left the ED. rv Addendum: 03/22/2018 09:25 Addendum: Culture Results: Positive urine culture. No further action required. Bacteria s s sensitive to prescribed antibiotic. Signatures: Dispatcher [employer] EDMS Macey Enamorado, PRINTED CIRCUIT BOARDS STRIPPER ETCHER-C PRINTED CIRCUIT BOARDS STRIPPER ETCHER-Ckb Nuria Friend, RN RN Laverne Montenegro RN CARLY Katie Peterson2 Sivakumar De La Torre RN RN Carina Lopez [id number] Corrections: (The following items were deleted from the chart) 03/18 14:30 14:07 BP 181 / 89; [facility]
== END 2018-03-18 19:34 | disposition home or self-care (01) ==
LOC: ER 13:41
DX: N20.2 Calculus of kidney with calculus of ureter (principal); I10 Essential (primary) hypertension; Z88.0 Allergy status to penicillin; Z88.5 Allergy status to narcotic agent
CPT/HCPCS: 36415; 74176; 76377; 80048; 81003; 81015; 85025; 87077; 87086; 87088; 87186; 96372; 96374; 96375; 99285; J0171; J2175; J2405; J2930; J3010; J3475; J7030

== ENCOUNTER 2018-05-02 02:34 | Emergency (ER) | payer BC ==
--- OUTSIDE RECORDS SUMMARY | 2018-05-02 02:36 | XMS REPORT ---
[...] End Status Dosage System Date Date Gabapentin [facility] 43401839442 300 MG Orally Jan 21, Active 1-2 Once a day 2017 capsules in evening Metoprolol [facility] 96911986113 50 MG Orally Active 1 tablet Tartrate Twice a day with food Lisinopril [facility] 53254429932 20 MG Orally Active 1 tablet Once daily Results No Known Results Summary Purpose eClinicalWorks Submission
--- OUTSIDE RECORDS SUMMARY | 2018-05-02 02:36 | XMS REPORT ---
:1965 [facility] [address] [place] [address] Care Team Providers Name Role Phone Unavailable [...]
--- OUTSIDE RECORDS SUMMARY | 2018-05-02 02:36 | XMS REPORT ---
:1965 Author Organization [employer] Care Team Providers Name Role Phone Cristina Ross Provider Role Unavailable Allergies, Adverse Reactions, Alerts Substance Reaction Event Type PCN Info Not Available Drug Allergy MORPHINE Info Not Available Drug Allergy Demerol SOB/chest tightness/sensation of throat closing Drug Allergy Problems Problem Type Condition Code Onset Dates Condition Status Assessment Follow-up exam Z09 Active Assessment Kidney stone N20.0 Active Assessment Abdominal pain, unspecified R10.9 Active abdominal location Problem Abdominal pain, unspecified R10.9 Active abdominal location Problem Low back pain M54.5 Active Problem Kidney stone N20.0 Active Problem Gastroesophageal reflux disease, K21.9 Active esophagitis presence not specified Problem Hypertension, unspecified type I10 Active Problem Other chronic pain G89.29 Active Problem Pain in right ankle and joints of M25.571 Active right foot Medications Medication Code Code Instructions Start End Status Dosage System Date Date Gabapentin [facility] 75475063449 300 MG Orally Jan 21, Active 1-2 Once a day 2018 capsules in evening Lisinopril [facility] 12195714029 20 MG Orally Active 1 tablet Once daily Metoprolol [facility] 15436278374 50 MG Orally Active 1 tablet Tartrate Twice a day with food Results No Known Results Summary Purpose eClinicalWorks Submission
[2018-05-02] MEDS ORDERED: TETANUS & DIPHTHERIA TOX,ADULT 0.5 ML VIAL ONE (03:21)
[2018-05-02] MEDS ORDERED: CEPHALEXIN 250 MG CAP ONE (03:56)
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
== END 2018-05-02 05:02 | disposition home or self-care (01) ==
LOC: ER 02:34
DX: S01.21XA Laceration without foreign body of nose, initial encounter (principal); S02.2XXA Fracture of nasal bones, initial encounter for closed fracture; S16.1XXA Strain of muscle, fascia and tendon at neck level, initial encounter; M79.9 Soft tissue disorder, unspecified; Y04.8XXA Assault by other bodily force, initial encounter; Y92.009 Unspecified place in unspecified non-institutional (private) residence as the place of occurrence of the external cause; I10 Essential (primary) hypertension; Z79.1 Long term (current) use of non-steroidal anti-inflammatories (NSAID); Z79.899 Other long term (current) drug therapy
CPT/HCPCS: 70486; 72125; 76377; 90714; 99284

== ENCOUNTER 2019-02-10 11:15 | Emergency (ER) | payer BC ==
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
--- OUTSIDE RECORDS SUMMARY | 2019-02-10 11:17 | XMS REPORT ---
[...] Medications Results No Known Results Summary Purpose eClinicalDadShed Submission
--- OUTSIDE RECORDS SUMMARY | 2019-02-10 11:17 | XMS REPORT ---
:1965 Author Organization [employer] Care Team Providers Name Role Phone Vandana Cristina Provider Role Unavailable Allergies No Known Allergies [...] R30.0 Active Problem Nose pain J34.89 Active Problem Low back pain M54.5 Active Problem Other chronic pain G89.29 Active Problem Gastroesophageal reflux disease, K21.9 Active esophagitis presence not specified Problem Hypertension, unspecified type I10 Active Problem Pain in right ankle and joints of M25.571 Active right foot Problem Abdominal pain, unspecified R10.9 Active abdominal location Medications No Known Medications Results No Known Results Summary Purpose eClinicalWorks Submission
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
[2019-02-10] MEDS ORDERED: KETOROLAC 30 MG/ML INJ ONE (11:38)
[2019-02-10] MEDS ORDERED: ONDANSETRON 4 MG/2 ML VIAL ONE (11:38)
[2019-02-10 11:54] LABS: Absolute Lymphocytes (CBC) 2.3 K/uL (0.7-4.9); Basophils % 0.3 % (0-1.3); Hematocrit 41.2 % (36.0-45.0); Lymphocytes % 38.3 % (15.3-44.8); MPV 10.5 fL (7.6-11.3); RBC Red Blood Cell Count 4.55 M/uL (3.86-4.86)
[2019-02-10 12:05] LABS: Potassium 4.2 mmol/L (3.5-5.1)
--- NOTE | 2019-02-10 12:06 | RAD REPORT ---
EXAM DESCRIPTION: CT - Stone Protocol - 02/10/2019 11:49 am CLINICAL HISTORY: Flank pain. Abd pain;Flank pain;Hematuria COMPARISON: Stone Protocol dated 03/18/2018 TECHNIQUE: Axial images were obtained without oral or IV contrast. Lack of contrast limits solid org an and vascular assessment. The [id number] spans the entirety of the system partially obscuring uppermost abdomen and lung bases. Coronal reformatted images were obtained and reviewed. All CT scans are performed using dose optimization technique as appropriate and may include automated exposure control or mA/KV adjustment according to patient size. FINDINGS: The lower lung black are clear. The liver demonstrates several small low-density lesions, unchanged but incompletely assessed on nonc ontrast CT. Spleen is grossly unremarkable. The pancreas and adrenal glands are normal. No pathologic lymphadenopathy in the abdomen or pelvis. A 2 mm calculus is suspect at the left UVJ resulting in mild left hydronephrosis. No additional st one seen. No bowel obstruction, free air, free fluid or abscess. Normal appendix noted. No significant bony abnormality. IMPRESSION: 2 mm calculus left UVJ resulting in mild left hydronephrosis.
[2019-02-10 12:39] LABS: Urine Blood TRACE (NEG); Urine Glucose NEGATIVE (NEG); Urine Protein NEGATIVE (NEG); Urine Specific Gravity 1.025 (1.005-1.030)
--- NOTE | 2019-02-10 12:39 | ER ---
Nurse's Notes [facility] Name: Candida Davison Age: 53 yrs Sex: Female : 1965 Arrival Date: 02/10/2019 Time: 11:17 Bed 24 Private MD: Diagnosis: Hydronephrosis with renal and ureteral calculous obstruction Presentation: 02/10 11:22 Presenting complaint: Patient states: I have been having left flank pain intermittently la1 for a while but now it is constant, feels like a stone. Transition of care: patient was not received from another setting of care. Onset of symptoms was February 10, 2019. Risk Assessment: Do you want to hurt yourself or someone else? Patient reports no desire to harm self or others. Initial Sepsis Screen: Does the patient meet any 2 criteria? No. Patient's initial sepsis screen is negative. Does the patient have a suspected source of infection? No. Patient's initial sepsis screen is negative. Care prior to arrival: None. 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 - Social history:: Smoking status: Patient/guardian denies using tobacco. - Ebola Screening: : No symptoms or risks identified at this time. Screenin:42 Abuse screen: Denies threats or abuse. Denies injuries from another. Nutritional hb screening: No deficits noted. Tuberculosis screening: No symptoms or risk factors identified. Fall Risk None identified. Assessment: 11:43 General: Appears in no apparent distress. uncomfortable, Behavior is calm, cooperative. la1 Pain: Complains of pain in left flank. Neuro: Level of Consciousness is awake, alert, obeys commands, Oriented to person, place, time, situation. Cardiovascular: Capillary refill < 3 seconds Patient's skin is warm and dry. Respiratory: Airway is patent Respiratory effort is even, unlabored, Respiratory pattern is regular, symmetrical. GI: Abdomen is round non-distended, Bowel sounds present X 4 quads. : No signs and/or symptoms were reported regarding the genitourinary system. 12:49 Reassessment: Patient appears in no apparent distress at this time. Patient is alert, ca1 oriented x 3, equal unlabored respirations, skin warm/dry/pink. Vital Signs: 11:24 BP 155 / 100; Pulse 70; Resp 18; Temp 98.3; Pulse Ox 100% on R/A; Weight 76.66 kg; la1 Height 5 ft. 3 in. (160.02 cm); Pain 10/10; 12:49 BP 139 / 92; Pulse 76; Resp 16 S; Pulse Ox 100% on R/A; ca1 11:24 Body Mass Index 29.94 (76.66 kg, 160.02 cm) la1 ED Course: 11:17 Patient arrived in ED. cf2 11:23 Triage completed. la1 11:24 Arm band placed on right wrist. la1 11:31 Willian Yun PA is PHCP. jr8 11:31 Rhett Toure MD is Attending Physician. jr8 11:42 Donis Vincent, CARLY is Primary Nurse. la1 11:42 Patient has correct armband on for positive identification. Bed in low position. Call hb light in reach. Side rails up X 1. 11:44 Inserted saline lock: 20 gauge in right forearm, using aseptic technique. Blood la1 collected. 11:53 CT Stone Protocol In Process Unspecified. EDMS 12:38 Michael Gutierrez MD is Referral Physician. jr8 12:49 No provider procedures requiring assistance completed. IV discontinued, intact, ca1 bleeding controlled, No redness/swelling at site. Pressure dressing applied. Administered Medications: 11:42 Drug: Zofran 4 mg Route: IVP; Site: right forearm; la1 12:48 Follow up: Response: No adverse reaction; Pain is decreased ca1 11:43 Drug: TORadol - Ketorolac 15 mg Route: IVP; Site: right forearm; la1 12:48 Follow up: Response: No adverse reaction; Pain is decreased ca1 Outcome: 12:38 Discharge ordered by . jr8 12:49 Discharged to home ambulatory, with family. ca1 12:49 Condition: stable 12:49 Discharge instructions given to patient, Instructed on discharge instructions, follow up and referral plans. medication usage, Demonstrated understanding of instructions, follow-up care, medications, Prescriptions given X 3. 12:51 Patient left the ED. ca1 Signatures: Dispatcher [employer] EDMS Willian Yun PA PA jr8 Donis Vincent RN RN la1 Nicole Christopher RN RN Rosemary Wesley RN RN ca1 Roger Locke2
--- NOTE | 2019-02-10 12:39 | EDPHYS ---
Physician Documentation [facility] Name: Candida Davison Age: 53 yrs Sex: Female : 1965 Arrival Date: 02/10/2019 Time: 11:17 Bed 24 Private MD: ED Physician Rhett Toure HPI: 02/10 12:11 This 53 yrs old Female presents to ER via Ambulatory with complaints of Low jr8 Back Pain. 12:11 The patient presents with pain that is acute. The symptoms are located in the left jr8 flank. The pain does not radiate. The problem was sustained from unknown cause. Onset: The symptoms/episode began/occurred acutely, today. Modifying factors: The patient symptoms are alleviated by nothing, the patient symptoms are aggravated by any movement. Associated signs and symptoms: Pertinent positives: nausea. Severity of symptoms: At their worst the symptoms were moderate, in the emergency department the symptoms are unchanged. The patient has experienced a previous episode. The patient has not recently seen a physician. Patient with history of renal stone in past. Stated that she started with pain this morning in left flank that feels just like her previous stone . 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 - Social history:: Smoking status: Patient/guardian denies using tobacco. - Ebola Screening: : No symptoms or risks identified at this time. ROS: 12:11 Eyes: Negative for injury, pain, redness, and discharge, ENT: Negative for injury, jr8 pain, and discharge, Neck: Negative for injury, pain, and swelling, Cardiovascular: Negative for chest pain, palpitations, and edema, Respiratory: Negative for shortness of breath, cough, wheezing, and pleuritic chest pain, Abdomen/GI: Negative for abdominal pain, nausea, vomiting, diarrhea, and constipation, MS/Extremity: Negative for injury and deformity, Skin: Negative for injury, rash, and discoloration, Neuro: Negative for headache, weakness, numbness, tingling, and seizure. 12:11 Back: Positive for flank pain, on the left. Exam: 12:11 Eyes: Pupils equal round and reactive to light, extra-ocular motions intact. Lids and jr8 lashes normal. Conjunctiva and sclera are non-icteric and not injected. Cornea within normal limits. Periorbital areas with no swelling, redness, or edema. ENT: Nares patent. No nasal discharge, no septal abnormalities noted. Tympanic membranes are normal and external auditory canals are clear. Oropharynx with no redness, swelling, or masses, exudates, or evidence of obstruction, uvula midline. Mucous membranes moist. Neck: Trachea midline, no thyromegaly or masses palpated, and no cervical lymphadenopathy. Supple, full range of motion without nuchal rigidity, or vertebral point tenderness. No Meningismus. Cardiovascular: Regular rate and rhythm with a normal S1 and S2. No gallops, murmurs, or rubs. Normal PMI, no JVD. No pulse deficits. Respiratory: Lungs have equal breath sounds bilaterally, clear to auscultation and percussion. No rales, rhonchi or wheezes noted. No increased work of breathing, no retractions or nasal flaring. Abdomen/GI: Soft, non-tender, with normal bowel sounds. No distension or tympany. No guarding or rebound. No evidence of tenderness throughout. Skin: Warm, dry with normal turgor. Normal color with no rashes, no lesions, and no evidence of cellulitis. MS/ Extremity: Pulses equal, no cyanosis. Neurovascular intact. Full, normal range of motion. Neuro: Awake and alert, GCS 15, oriented to person, place, time, and situation. Cranial nerves II-XII grossly intact. Motor strength 5/5 in all extremities. Sensory grossly intact. Cerebellar exam normal. Normal gait. 12:11 Back: pain, that is moderate, of the left flank, ROM is painless, normal spinal alignment noted, CVA tenderness, that is mild, is noted on the left, vertebral tenderness, is not appreciated. Vital Signs: 11:24 BP 155 / 100; Pulse 70; Resp 18; Temp 98.3; Pulse Ox 100% on R/A; Weight 76.66 kg; la1 Height 5 ft. 3 in. (160.02 cm); Pain 10/10; 12:49 BP 139 / 92; Pulse 76; Resp 16 S; Pulse Ox 100% on R/A; ca1 11:24 Body Mass Index 29.94 (76.66 kg, 160.02 cm) la1 MDM: 11:31 Patient medically screened. jr8 12:13 Data reviewed: vital signs, nurses notes, lab test result(s), radiologic studies, CT jr8 scan. Data interpreted: Pulse oximetry: on room air is 100 %. Interpretation: normal. Counseling: I had a detailed discussion with the patient and/or guardian regarding: the historical points, exam findings, and any diagnostic results supporting the discharge/admit diagnosis, lab results, radiology results, the need for outpatient follow up, a urologist, to return to the emergency department if symptoms worsen or persist or if there are any questions or concerns that arise at home. Response to treatment: the patient's symptoms have markedly improved after treatment. 02/10 11:34 Order name: Basic Metabolic Panel; Complete Time: 12:06 [facility] 02/10 11:34 Order name: CBC with Diff; Complete Time: 12:06 [facility] 02/10 11:34 Order name: CT Stone Protocol; Complete Time: 12:11 [facility] 02/10 11:39 Order name: Urine Dipstick--Ancillary (enter results); Complete Time: 16:48 [facility] 02/10 11:39 Order name: Urine --Ancillary (enter results); Complete Time: 16:48 [facility] 02/10 11:34 Order name: IV; Complete Time: 11:43 [facility] 02/10 11:34 Order name: Urine Dipstick-Ancillary (obtain specimen); Complete Time: 11:34 [facility] Administered Medications: 11:42 Drug: Zofran 4 mg Route: IVP; Site: right forearm; la1 12:48 Follow up: Response: No adverse reaction; Pain is decreased ca1 11:43 Drug: TORadol - Ketorolac 15 mg Route: IVP; Site: right forearm; la1 12:48 Follow up: Response: No adverse reaction; Pain is decreased ca1 Disposition: 15:29 Co-signature as Attending Physician, Rhett Toure MD., cha Disposition: 02/10/19 12:38 Discharged to Home. Impression: Hydronephrosis with renal and ureteral calculous obstruction. - Condition is Stable. - Discharge Instructions: Kidney Stones, Hydronephrosis. - Prescriptions for Ibuprofen 800 mg Oral Tablet - take 1 tablet by ORAL route every 12 hours As needed take with food; 20 tablet. Zofran 4 mg Oral Tablet - take 1 tablet by ORAL route every 12 hours As needed; 20 tablet. Flomax 0.4 mg Oral Capsule, Sust. Release 24 hr - take 1 capsule by ORAL route once daily 1/2 hour following the same meal each day; 30 capsule. - Medication Reconciliation Form, Thank You Letter, Antibiotic Education, Prescription Opioid Use form. - Follow up: Michael Gutierrez; When: 2 - 3 days; Reason: Recheck today's complaints, Continuance of care, Re-evaluation by your physician. - Problem is new. - Symptoms have improved. Signatures: Dispatcher [employer] EDMS Rhett Toure MD MD cha Roszak, Josh, PA PA jr8 Donis Vincent RN RN la1 Rosemary Wesley RN RN ca1 Corrections: (The following items were deleted from the chart) 12:51 12:38 02/10/2019 12:38 Discharged to Home. Impression: Hydronephrosis with renal and ca1 ureteral calculous obstruction. Condition is Stable. Discharge Instructions: Kidney Stones, Hydronephrosis. Prescriptions for Ibuprofen 800 mg Oral Tablet - take 1 tablet by ORAL route every 12 hours As needed take with food; 20 tablet, Zofran 4 mg Oral Tablet - take 1 tablet by ORAL route every 12 hours As needed; 20 tablet, Flomax 0.4 mg Oral Capsule, Sust. Release 24 hr - take 1 capsule by ORAL route once daily 1/2 hour following the same meal each day; 30 capsule. and Forms are Medication Reconciliation Form, Thank You Letter, Antibiotic Education, Prescription Opioid Use. Follow up: Michael Gutierrez; When: 2 - 3 days; Reason: Recheck today's complaints, Continuance of care, Re-evaluation by your physician. Problem is new. Symptoms have improved. jr8
== END 2019-02-10 12:51 | disposition home or self-care (01) ==
LOC: ER 11:15
DX: N13.2 Hydronephrosis with renal and ureteral calculous obstruction (principal); I10 Essential (primary) hypertension; Z87.442 Personal history of urinary calculi; Z88.0 Allergy status to penicillin; Z88.5 Allergy status to narcotic agent
CPT/HCPCS: 85025; 80048; 36415; 81025; 81003; 76377; 74176; 96375; 96374; 99284; J2405

== ENCOUNTER 2019-08-20 11:08 | Emergency (ER) | payer BC ==
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
--- NOTE | 2019-08-20 11:39 | ER ---
Nurse's Notes [facility] [place], [place] Name: Candida Davison Age: 54 yrs Sex: Female : 1965 Arrival Date: 08/20/2019 Time: 11:11 Bed 13 Private MD: Cristina Ross Diagnosis: Acute pharyngitis Presentation: 11:27 Chief complaint: Patient states: Sore throat x 2-3 days. Cough and congestion. Denies ca1 Fever. Coronavirus screen: The patient has NOT traveled to [place] in the past 14 days. The patient has NOT had contact with known and/or suspected case of Coronavirus. Ebola Screen: Patient negative for fever greater than or equal to 101.5 degrees Fahrenheit, and additional compatible Ebola Virus Disease symptoms Patient denies exposure to infectious person. Patient denies travel to an Ebola-affected area in the 21 days before illness onset. No symptoms or risks identified at this time. Initial Sepsis Screen: Does the patient meet any 2 criteria? No. Patient's initial sepsis screen is negative. Does the patient have a suspected source of infection? No. Patient's initial sepsis screen is negative. Risk Assessment: Do you want to hurt yourself or someone else? Patient reports no desire to harm self or others. Onset of symptoms was August 20, 2019. 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 - Social history:: Smoking status: Patient denies any tobacco usage or history of. - Family history:: not pertinent. Screenin:33 Abuse screen: Denies threats or abuse. Denies injuries from another. Nutritional ca1 screening: No deficits noted. Tuberculosis screening: No symptoms or risk factors identified. Fall Risk None identified. Assessment: 11:33 General: Appears in no apparent distress. comfortable, Behavior is calm, cooperative, ca1 appropriate for age. Pain: Complains of pain in throat. Neuro: Level of Consciousness is awake, alert, obeys commands, Oriented to person, place, time, situation, Appropriate for age. Respiratory: Airway is patent Respiratory effort is even, unlabored, Respiratory pattern is regular, symmetrical, Breath sounds are clear bilaterally. Respiratory: Reports cough that is. EENT: Throat is clear. EENT: Reports nasal congestion. Derm: Skin is intact, is healthy with good turgor, Skin is pink, warm \T\ dry. Musculoskeletal: Circulation, motion, and sensation intact. Capillary refill < 3 seconds. Vital Signs: 11:27 BP 122 / 85; Pulse 87; Resp 19 S; Temp 98.1(O); Pulse Ox 96% on R/A; Weight 74.84 kg ca1 (R); Height 5 ft. 2 in. (157.48 cm) (R); Pain 0/10; 11:27 Body Mass Index 30.18 (74.84 kg, 157.48 cm) ca1 ED Course: 11:11 Patient arrived in ED. mr 11:11 Cristina Ross MD is Private Physician. mr 11:24 Rosemary Wesley, CARLY is Primary Nurse. ca1 11:25 Rhett Toure MD is Attending Physician. [facility] 11:30 Triage completed. ca1 11:32 Arm band placed on right wrist. ca1 11:33 Patient has correct armband on for positive identification. Bed in low position. Call ca1 light in reach. Side rails up X 1. Pulse ox on. NIBP on. 11:33 No provider procedures requiring assistance completed. Patient did not have IV access ca1 during this emergency room visit. 11:37 Cristina Ross MD is Referral Physician. [place] Administered Medications: 11:38 Drug: Zithromax 500 mg Route: PO; ca1 11:55 Follow up: Response: No adverse reaction ca1 Outcome: 11:38 Discharge ordered by . [place] 11:55 Discharged to home ambulatory. ca1 11:55 Condition: stable 11:55 Discharge instructions given to patient, Instructed on discharge instructions, follow up and referral plans. Demonstrated understanding of instructions, follow-up care, medications, Prescriptions given X 3. 11:55 Patient left the ED. ca1 Signatures: Rhett Toure MD MD cha Rivera, Cordelia mr Rosemary Wesley, RN RN ca1
--- NOTE | 2019-08-20 11:39 | EDPHYS ---
Physician Documentation [facility] Name: Candida Davison Age: 54 yrs Sex: Female : 1965 Arrival Date: 08/20/2019 Time: 11:11 Bed 13 Private MD: Cristina Ross ED Physician Rhett Toure HPI: 11:35 This 54 yrs old Female presents to ER via Ambulatory with complaints of Sore israel Throat. 11:35 The patient presents with sore throat. The patient describes throat pain as burning, israel constant. Onset: The symptoms/episode began/occurred 2 day(s) ago. Severity of symptoms: At their worst the symptoms were mild, in the emergency department the symptoms are unchanged. Modifying factors: The symptoms are alleviated by nothing. The patient has not experienced similar symptoms in the past. [employer]: 11:32 LMP N/A - Post-menopause ca1 Historical: - Allergies: 11:32 Codeine; ca1 11:32 Morphine; ca1 11:32 Demerol; ca1 11:32 PENICILLINS; ca1 - Home Meds: 11:32 lisinopril Oral [Active]; Metoprolol Tartrate Oral [Active]; Naproxen Oral [Active]; ca1 - PMHx: 11:32 Hypertension; Kidney stones; ca1 - PSHx: 11:32 Thyroidectomy; ca1 - Immunization history:: Adult Immunizations up to date, Flu vaccine is not up to date. - Social history:: Smoking status: Patient denies any tobacco usage or history of. - Family history:: not pertinent. ROS: 11:35 Constitutional: Negative for fever, chills, and weight loss, Eyes: Negative for injury, israel pain, redness, and discharge, Neck: Negative for injury, pain, and swelling, Cardiovascular: Negative for chest pain, palpitations, and edema, Respiratory: Negative for shortness of breath, cough, wheezing, and pleuritic chest pain, Abdomen/GI: Negative for abdominal pain, nausea, vomiting, diarrhea, and constipation, Back: Negative for injury and pain, : Negative for injury, bleeding, discharge, and swelling, MS/Extremity: Negative for injury and deformity, Skin: Negative for injury, rash, and discoloration, Neuro: Negative for headache, weakness, numbness, tingling, and seizure, Psych: Negative for depression, anxiety, suicide ideation, homicidal ideation, and hallucinations, Allergy/Immunology: Negative for hives, rash, and allergies, Endocrine: Negative for neck swelling, polydipsia, polyuria, polyphagia, and marked weight changes, Hematologic/Lymphatic: Negative for swollen nodes, abnormal bleeding, and unusual bruising. 11:35 ENT: Positive for sore throat. Exam: 11:35 Constitutional: This is a well developed, well nourished patient who is awake, alert, israel and in no acute distress. Head/Face: Normocephalic, atraumatic. Eyes: Pupils equal round and reactive to light, extra-ocular motions intact. Lids and lashes normal. Conjunctiva and sclera are non-icteric and not injected. Cornea within normal limits. Periorbital areas with no swelling, redness, or edema. Neck: Trachea midline, no thyromegaly or masses palpated, and no cervical lymphadenopathy. Supple, full range of motion without nuchal rigidity, or vertebral point tenderness. No Meningismus. Chest/axilla: Normal chest wall appearance and motion. Nontender with no deformity. No lesions are appreciated. Cardiovascular: Regular rate and rhythm with a normal S1 and S2. No gallops, murmurs, or rubs. Normal PMI, no JVD. No pulse deficits. Respiratory: Lungs have equal breath sounds bilaterally, clear to auscultation and percussion. No rales, rhonchi or wheezes noted. No increased work of breathing, no retractions or nasal flaring. Abdomen/GI: Soft, non-tender, with normal bowel sounds. No distension or tympany. No guarding or rebound. No evidence of tenderness throughout. Back: No spinal tenderness. No costovertebral tenderness. Full range of motion. Pelvic Exam: Normal external genitalia. Speculum exam with closed cervical os, no discharge or bleeding noted. Bimanual exam with normal adnexa, no adnexal or cervical motion tenderness. Normal uterus. Skin: Warm, dry with normal turgor. Normal color with no rashes, no lesions, and no evidence of cellulitis. MS/ Extremity: Pulses equal, no cyanosis. Neurovascular intact. Full, normal range of motion. Neuro: Awake and alert, GCS 15, oriented to person, place, time, and situation. Cranial nerves II-XII grossly intact. Motor strength 5/5 in all extremities. Sensory grossly intact. Cerebellar exam normal. Normal gait. Psych: Awake, alert, with orientation to person, place and time. Behavior, mood, and affect are within normal limits. 11:35 ENT: Posterior pharynx: Airway: normal, no evidence of obstruction, Tonsils: with erythema, Uvula: normal, midline, non-edematous, no erythema, swelling, that is mild, erythema, that is mild, exudate, is not appreciated, peritonsillar mass, is not appreciated, pooling of secretions, is not appreciated. Vital Signs: 11:27 BP 122 / 85; Pulse 87; Resp 19 S; Temp 98.1(O); Pulse Ox 96% on R/A; Weight 74.84 kg ca1 (R); Height 5 ft. 2 in. (157.48 cm) (R); Pain 0/10; 11:27 Body Mass Index 30.18 (74.84 kg, 157.48 cm) ca1 MDM: 11:25 Patient medically screened. [facility] Administered Medications: 11:38 Drug: Zithromax 500 mg Route: PO; ca1 11:55 Follow up: Response: No adverse reaction ca1 Disposition: 08/20/19 11:38 Discharged to Home. Impression: Acute pharyngitis. - Condition is Stable. - Discharge Instructions: Pharyngitis, Pharyngitis, [id number], Sore Throat, [id number]. - Prescriptions for Bromfed DM 2- 30-10 mg/5 mL Oral syrup - take 10 milliliter by ORAL route every 6 hours; 160 milliliter. Medrol (Bernardino) 4 mg Oral Tablets, Dose Pack - take 1 tablet by ORAL route as directed - follow package instructions; 1 packet. Zithromax 500 mg Oral Tablet - take 1 tablet by ORAL route once daily for 4 days; 4 tablet. - Medication Reconciliation Form, Thank You Letter, Antibiotic Education, Prescription Opioid Use form. - Follow up: Cristina Ross MD; When: 2 - 3 days; Reason: Recheck today's complaints, Continuance of care, Re-evaluation by your physician. - Problem is new. - Symptoms have improved. Signatures: Rhett Toure MD MD israel Rosemary Wesley RN RN ca1 Corrections: (The following items were deleted from the chart) 11:55 11:38 08/20/2019 11:38 Discharged to Home. Impression: Acute pharyngitis. Condition is ca1 Stable. Forms are Medication Reconciliation Form, Thank You Letter, Antibiotic Education, Prescription Opioid Use. Follow up: Cristina Ross; When: 2 - 3 days; Reason: Recheck today's complaints, Continuance of care, Re-evaluation by your physician. Problem is new. Symptoms have improved. israel
[2019-08-20] MEDS ORDERED: AZITHROMYCIN 250 MG TAB ONE (11:42)
[2019-08-20 12:10] VITALS: BP 122/85; TEMP 98.1; O2SAT 96
== END 2019-08-20 11:55 | disposition home or self-care (01) ==
LOC: ER 11:08
DX: J02.9 Acute pharyngitis, unspecified (principal); Z88.6 Allergy status to analgesic agent; Z88.0 Allergy status to penicillin; I10 Essential (primary) hypertension
CPT/HCPCS: 99283